=== PATIENT | female | born 1965 | race Hispanic/Latino ===

== ENCOUNTER 2023-10-19 13:12 | Emergency (ER) | payer OTHER ==
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
[2023-10-19 14:02] VITALS: TEMP 97.3
[2023-10-19 14:03] VITALS: BP 178/84; O2SAT 99
== END 2023-10-19 13:57 | disposition home or self-care (01) ==
LOC: ER 13:12
DX: M79.10 Myalgia, unspecified site (principal); R03.0 Elevated blood-pressure reading, without diagnosis of hypertension

== ENCOUNTER 2023-12-17 20:32 | Emergency (ER) | payer OTHER ==
[2023-12-17] MEDS ORDERED: HYDROCODONE/APAP 7.5/325 MG TAB ONE (21:58)
[2023-12-17] MEDS ORDERED: LIDOCAINE 1% MPF 5 ML VIAL ONE (21:58)
--- NOTE | 2023-12-17 23:25 | ER ---
Nurse's Notes [facility] Name: Yesenia Betts Age: 58 yrs Sex: Female : 1965 Arrival Date: 12/17/2023 Time: 20:32 Bed 11 Private MD: Chinedu Rousseau Diagnosis: Paronychia;Cellulitis of finger Presentation: 12/16 21:10 Chief complaint: Patient states: three days ago I think I got bit by something on my tm6 right middle finger. It's throbbing, and shooting up into my forearm. And I keep getting prickly pains in my heart, feels like a needle. Coronavirus screen: Client denies travel out of the [place] in the last 14 days. Ebola Screen: Patient negative for fever greater than or equal to 101.5 degrees Fahrenheit, and additional compatible Ebola Virus Disease symptoms Patient denies exposure to infectious person. Patient denies travel to an Ebola-affected area in the 21 days before illness onset. No symptoms or risks identified at this time. Initial Sepsis Screen: Does the patient meet any 2 criteria? No. Patient's initial sepsis screen is negative. Does the patient have a suspected source of infection? No. Patient's initial sepsis screen is negative. Risk Assessment: Do you want to hurt yourself or someone else? Patient reports no desire to harm self or others. Onset of symptoms was December 14, 2023. 21:10 Method Of Arrival: Ambulatory tm6 21:10 Acuity: MORENO 4 tm6 Triage Assessment: 21:11 General: Appears uncomfortable, Behavior is cooperative. Pain: Complains of pain in tm6 right middle finger Quality of pain is described as throbbing. EENT: No signs and/or symptoms were reported regarding the EENT system. Neuro: Level of Consciousness is awake, alert, obeys commands, Oriented to person, place, time, situation. Cardiovascular: Patient's skin is warm and dry. Respiratory: Airway is patent Respiratory effort is even, unlabored, Respiratory pattern is regular, symmetrical. GI: No signs and/or symptoms were reported involving the gastrointestinal system. Abdomen is flat, non-distended. : No signs and/or symptoms were reported regarding the genitourinary system. Derm: Reports redness and swelling on right middle finger. Musculoskeletal: Reports pain in right middle finger. 21:12 Bite description: bite sustained to right hand and right middle finger. ha1 23:57 Bite description: by PATIENT DOES NOT KNOW HOW HER FINGER ENDED UP LIKE THIS . DENIES ha1 BITE, animal information: vaccination(s) is unknown. Historical: - Allergies: 21:11 No Known Allergies; tm6 - PMHx: 21:11 Migraines; spinal stenosis (Migraines); tm6 - Immunization history:: Client reports receiving the 2nd dose of the Covid vaccine. - Infectious Disease History:: Denies. - Social history:: Smoking status: Patient denies any tobacco usage or history of. Patient/guardian denies using alcohol. Screenin:00 [facility] ED Fall Risk Assessment (Adult) History of falling in the last 3 months, ha1 including since admission No falls in past 3 months (0 pts) Confusion or Disorientation No (0 pts) Intoxicated or Sedated No (0 pts) Impaired Gait No (0 pts) Mobility Assist Device Used No (0 pt) Altered Elimination No (0 pt) Score/Fall Risk Level 0 - 2 = Low Risk Oriented to surroundings, Maintained a safe environment, Educated pt \T\ family on fall prevention, incl call for assistance when getting out of bed, Hourly rounding (assess needs \T\ fall precautionary measures) done. Abuse screen: Denies threats or abuse. Denies injuries from another. Nutritional screening: No deficits noted. Tuberculosis screening: No symptoms or risk factors identified. Assessment: 22:00 General: Appears uncomfortable, Behavior is calm, cooperative. Pain: Complains of pain ha1 in right hand and right middle finger Pain does not radiate. Pain currently is 9 out of 10 on a pain scale. Quality of pain is described as throbbing. Neuro: Level of Consciousness is awake, alert, obeys commands, Oriented to person, place, time, situation. Cardiovascular: Patient's skin is warm and dry. Respiratory: Airway is patent Respiratory effort is even, unlabored, Respiratory pattern is regular, symmetrical. Derm: Skin is healthy with good turgor, Skin is pink, warm \T\ dry. 23:45 Reassessment: Patient and/or family updated on plan of care and expected duration. Pain ha1 level reassessed. Patient is alert, oriented x 3, equal unlabored respirations, skin warm/dry/pink. Vital Signs: 21:09 BP 109 / 68; Pulse 66; Resp 19; Temp 97.9(O); Pulse Ox 94% on R/A; MAP 79 mmHg; Weight tm6 81.65 kg; Height 5 ft. 3 in. ; Pain 7/10; 22:00 BP 160 / 90; Pulse 85; Resp 17 S; Pulse Ox 97% on R/A; ha1 23:20 BP 119 / 67; Pulse 69; Resp 17 S; Pulse Ox 98% on R/A; ha1 21:09 Body Mass Index 31.89 (81.65 kg, 160.02 cm) tm6 21:09 Pain Scale: Adult tm6 ED Course: 20:34 Patient arrived in ED. am2 20:35 [facility] Lockwood [facility]C [facility] sb4 20:35 Seb Calix MD is Attending Physician. sb4 20:35 Chinedu Rousseau MD is Private Physician. am2 21:11 Triage completed. tm6 21:11 Arm band placed on left wrist. tm6 22:00 Patient has correct armband on for positive identification. Placed in gown. Bed in low ha1 position. Call light in reach. Side rails up X 1. 23:24 Chinedu Rousseau MD is Referral Physician. sb4 23:34 Faby Gross RN is Primary Nurse. ha1 23:55 No provider procedures requiring assistance completed. Patient did not have IV access ha1 during this emergency room visit. 23:59 Provided Education on: WOUND CARE. ha1 Administered Medications: 22:03 Drug: Hydrocodone-Acetaminophen PO (7.5 mg-325 mg) 1 tabs PO once Route: PO; ha1 22:35 Follow up: Response: No adverse reaction; Pain is decreased; RASS: Alert and Calm (0) ha1 23:00 Drug: Lidocaine Infiltration (1 %) 5 ml 5 ml Infiltration once; to bedside {Note: ha1 ADMINISTERED BY [facility] PROVIDER .} Volume: 5 ml; Route: Infiltration; 23:54 Follow up: Response: No adverse reaction ha1 23:40 Drug: Trimethoprim-Sulfamethoxazole PO (160 mg-800 mg (DS) 1 tablet PO once Route: PO; ha1 23:53 Follow up: Response: No adverse reaction ha1 23:54 Follow up: Response: No adverse reaction ha1 Medication: 23:56 VIS not applicable for this client. ha1 Outcome: 23:25 Discharge ordered by . lizeth 23:59 Discharged to home ambulatory, ha1 23:59 Condition: stable 23:59 Discharge instructions given to patient, Instructed on discharge instructions, follow up and referral plans. medication usage, Demonstrated understanding of instructions, follow-up care, medications, wound care, Prescriptions given X 1, 12/17 00:02 Patient left the ED. ha1 Signatures: Cynthia Hollis Heidy, RN RN ha1 Cheryl Lockwood, PA-C PA-C [id number] Franklin Mancuso RN RN tm6
--- NOTE | 2023-12-17 23:25 | EDPHYS ---
Physician Documentation [facility] Name: Yesenia Betts Age: 58 yrs Sex: Female : 1965 Arrival Date: 12/17/2023 Time: 20:32 Bed 11 Private MD: Chinedu Rousseau ED Physician Seb Calix HPI: 12/17 01:59 This 58 yrs old Female presents to ER via Ambulatory with complaints of finger sb4 pain, swelling. 02:00 The patient or guardian reports pain, swelling, tenderness. The complaints affect the sb4 palmar aspect of distal phalanx of right middle finger. Context: resulted from an unknown cause. Onset: The symptoms/episode began/occurred 2 day(s) ago. The patient has not experienced similar symptoms in the past. The patient has not recently seen a physician. Historical: - Allergies: 12/16 21:11 No Known Allergies; tm6 - PMHx: 21:11 Migraines; spinal stenosis (Migraines); tm6 - Immunization history:: Client reports receiving the 2nd dose of the Covid vaccine. - Infectious Disease History:: Denies. - Social history:: Smoking status: Patient denies any tobacco usage or history of. Patient/guardian denies using alcohol. ROS: 12/17 02:00 Constitutional: Negative for fever, chills, and weight loss, sb4 Skin: Positive for erythema, swelling, of the palmar aspect of distal phalanx of right middle finger, All other systems are negative, Exam: 02:00 Constitutional: This is a well developed, well nourished patient who is awake, alert, sb4 and in no acute distress. Head/Face: Normocephalic, atraumatic. Eyes: Extra-ocular motions intact. Periorbital areas with no swelling, redness, or edema. ENT: Mucous membranes moist. 02:00 Skin: Paronychia right lateral middle fingernail with surrounded erythema and cellulitis. Vital Signs: 12/16 21:09 BP 109 / 68; Pulse 66; Resp 19; Temp 97.9(O); Pulse Ox 94% on R/A; MAP 79 mmHg; Weight tm6 81.65 kg; Height 5 ft. 3 in. ; Pain 7/10; 22:00 BP 160 / 90; Pulse 85; Resp 17 S; Pulse Ox 97% on R/A; ha1 23:20 BP 119 / 67; Pulse 69; Resp 17 S; Pulse Ox 98% on R/A; ha1 21:09 Body Mass Index 31.89 (81.65 kg, 160.02 cm) tm6 21:09 Pain Scale: Adult tm6 Procedures: 12/17 02:00 I \T\ D: Incision and drainage was performed for an abscess of the right palmar aspect of sb4 distal phalanx of right middle finger Prepped with Betadine, Anesthetized with 1 ml's 1% Lidocaine. Incised with #11 blade. Drained small amount purulent fluid. Dressing: non-Adherent dressing, the patient tolerated the procedure poorly. MDM: 12/16 20:44 Patient medically screened. sb4 12/17 02:00 Data reviewed: vital signs, nurses notes, and as a result, I will discharge patient. sb4 Counseling: I had a detailed discussion with the patient and/or guardian regarding the historical points, exam findings, and any diagnostic results supporting the discharge/admit diagnosis, the need for outpatient follow up, for definitive care. 12/16 21:45 Order name: Incision \T\ Drainage Setup; Complete Time: 22:03 sb4 12/16 23:24 Order name: Wound dressing; Complete Time: 23:34 sb4 Administered Medications: 12/16 22:03 Drug: Hydrocodone-Acetaminophen PO (7.5 mg-325 mg) 1 tabs PO once Route: PO; ha1 22:35 Follow up: Response: No adverse reaction; Pain is decreased; RASS: Alert and Calm (0) ha1 23:00 Drug: Lidocaine Infiltration (1 %) 5 ml 5 ml Infiltration once; to bedside {Note: ha1 ADMINISTERED BY [facility] .} Volume: 5 ml; Route: Infiltration; 23:54 Follow up: Response: No adverse reaction ha1 23:40 Drug: Trimethoprim-Sulfamethoxazole PO (160 mg-800 mg (DS) 1 tablet PO once Route: PO; ha1 23:53 Follow up: Response: No adverse reaction ha1 23:54 Follow up: Response: No adverse reaction ha1 Disposition: 12/17 05:33 Co-signature as Attending Physician, Seb Calix MD I agree with the assessment sp4 and plan of care. I reviewed the patient's care provided by the Advanced Practice Provider and agree with the diagnosis and treatment plan. Disposition Summary: 12/17/23 23:25 Discharge Ordered Notes: Location: Home sb4 Problem: new sb4 Symptoms: have improved sb4 Condition: Stable sb4 Diagnosis - Paronychia sb4 - Cellulitis of finger sb4 Followup: sb4 - With: Chinedu Rousseau MD - When: 2 - 3 days - Reason: Recheck today's complaints, Re-evaluation by your physician Discharge Instructions: - Discharge Summary Sheet sb4 - Cellulitis, Adult, [id number] sb4 - Paronychia, [id number] sb4 Forms: - Antibiotic Education sb4 - Patient Portal Instructions sb4 - Leadership Thank You Letter sb4 Prescriptions: - Bactrim DS 800-160 mg Oral Tablet - take 1 tablet ORAL route every 12 hours for 10 days; 20 tablet; Refills: 0, sb4 Product Selection Permitted Signatures: Faby Gross RN RN ha1 Cheryl Lockwood PA-C PAJed sb4 Seb Calix MD MD sp4 Franklin Mancuso RN RN tm6
[2023-12-17] MEDS ORDERED: SMZ./TMP. 800/160 MG TABLET ONE (23:38)
[2023-12-18 03:47] VITALS: TEMP 97.9
[2023-12-18 03:51] VITALS: BP 119/67; O2SAT 98
== END 2023-12-18 00:02 | disposition home or self-care (01) ==
LOC: ER 20:32
PROC: 0H9FXZZ Drainage of Right Hand Skin, External Approach (ICD-10-PCS; principal; 2023-12-18)
DX: L03.011 Cellulitis of right finger (principal)
CPT/HCPCS: 10060; J2001; 99283